=== PATIENT | female | born 1975 | race Caucasian/White ===

== ENCOUNTER → 2016-07-19 | Outpatient (CLI) | payer BC ==
--- NOTE | 2016-07-19 09:26 | REPMRS ---
Patient History The patient states she had a clinical breast exam in 2015. Family history of breast cancer in mother at age 54, breast cancer in paternal aunt at age 30, and breast cancer in maternal grandmother at age 60. Benign ultrasound-guided core biopsy of the right breast, December 27, 2009. Digital Mammo Screening Bilat: July 19, 2016 - Exam #: [id number] Bilateral CC and MLO view(s) were taken. Technologist: Jemima Velez, Technologist Prior study comparison: May 19, 2015, bilateral digital mammo screening bilat performed at [facility]. April 29, 2014, bilateral digital mammo screening bilat performed at [facility]. FINDINGS: The breast tissue is heterogeneously dense. This may lower the sensitivity of mammography. There has been no change in the appearance of the mammogram from the prior studies. There is a moderate amount of residual fibroglandular tissue which is fairly symmetric. There is no interval development of dominant mass, areas of architectural distortion, or clustered microcalcification typical of malignancy. ASSESSMENT: BI-RADS/ACR category 1 mammogram. Negative. Recommendation Routine screening mammogram in 1 year (for women over age 40). This mammogram was interpreted with the aid of an FDA-approved computer-aided dectection system. Electronically Signed By: Francisco J Rainey MD 07/19/16 0926
== END ==
LOC: M RAD 08:03
PROVIDERS: ATTEND Obstetrics & Gynecology
DX: Z12.39 Encounter for other screening for malignant neoplasm of breast (principal); Z80.3 Family history of malignant neoplasm of breast

== ENCOUNTER → 2017-08-22 | Outpatient (CLI) | payer BC | LOC: M RAD 08:11 | DX: Z12.31 Encounter for screening mammogram for malignant neoplasm of breast (principal); Z80.3 Family history of malignant neoplasm of breast | CPT/HCPCS: 77067 ==

== ENCOUNTER → 2017-08-25 | Outpatient (CLI) | payer BC | LOC: M RAD 12:44 | DX: M23.52 Chronic instability of knee, left knee (principal); M23.92 Unspecified internal derangement of left knee | CPT/HCPCS: 73721 ==

== ENCOUNTER 2017-10-15 08:31 | Outpatient (RCR) | payer SELFPAY, BC | END 2017-11-01 | LOC: M PT 08:31 | DX: Z47.89 Encounter for other orthopedic aftercare (principal); Z98.890 Other specified postprocedural states; M25.562 Pain in left knee | CPT/HCPCS: 97110 ==

== ENCOUNTER → 2017-11-01 | Outpatient (REF) | payer BC ==
[2017-11-01 12:38] LABS: HEMATOCRIT 38.8 % (36.0-47.0); HEMOGLOBIN 13.2 g/dl (12.0-15.5); MEAN CORPUSCULAR HEMOGLOBIN 32.6 pg (27.0-33.0); MEAN CORPUSCULAR VOLUME 95.8 fl (80.0-96.0); PLATELET COUNT, AUTOMATED 392 10^3/uL (150-450); RED BLOOD COUNT 4.05 10^6/uL (4.00-5.40); RED CELL DISTRIBUTION WIDTH 12.2 % (11.5-14.5); WHITE BLOOD COUNT 5.2 10^3/uL (4.0-10.0)
[2017-11-01 13:06] LABS: ALBUMIN 3.9 GM/DL (3.2-5.2); ALKALINE PHOSPHATASE 71 U/L (45-117); ALT/SGPT 25 U/L (12-78); ANION GAP 6 MEQ/L (8-16); AST/SGOT 19 U/L (7-37); BILIRUBIN,TOTAL 0.6 MG/DL (0.2-1.0); BLOOD UREA NITROGEN 16 MG/DL (7-18); CALCIUM LEVEL 8.6 MG/DL (8.5-10.1); CARBON DIOXIDE LEVEL 27 MEQ/L (21-32); CHLORIDE LEVEL 107 MEQ/L (98-107); CHOLESTEROL LEVEL 157 MG/DL (<200); CHOLESTEROL RISK RATIO 2.803 (<5); CREATININE FOR GFR 0.58 MG/DL (0.55-1.30); FERRITIN 16 NG/ML (8-252); GLOMERULAR FILTRATION RATE > 60.0 (>60); GLUCOSE, FASTING 84 MG/DL (70-100); HDL CHOLESTEROL 56 MG/DL (>40); IRON (FE) 101 UG/DL (50-170); LDL CHOLESTEROL 82.8 MG/DL (<100); NON-HDL-C 101 MG/DL; PERCENT SATURATION 24.3 % (13.2-45.0); SODIUM LEVEL 140 MEQ/L (136-145); TOTAL IRON BINDING CAPACITY 416 UG/DL (250-450); TOTAL PROTEIN 6.9 GM/DL (6.4-8.2); TRIGLYCERIDES LEVEL 91 MG/DL (<150)
[2017-11-01 14:57] LABS: TOTAL 25(OH) VITAMIN D 20.7 NG/ML (30.0-100.0)
[2017-11-01 14:58] LABS: VITAMIN B12 LEVEL 202 PG/ML (247-911)
== END ==
LOC: M SFHCCLAY 08:41
DX: E66.01 Morbid (severe) obesity due to excess calories (principal)
CPT/HCPCS: 83550

== ENCOUNTER 2017-11-06 10:01 | Outpatient (RCR) | payer SELFPAY | END 2017-12-01 | LOC: M PT 10:01 | DX: Z51.89 Encounter for other specified aftercare (principal); S83.512D Sprain of anterior cruciate ligament of left knee, subsequent encounter; X58.XXXD Exposure to other specified factors, subsequent encounter; Y92.9 Unspecified place or not applicable; Y93.9 Activity, unspecified; Y99.9 Unspecified external cause status | CPT/HCPCS: 97110 ==

== ENCOUNTER → 2018-02-20 | Outpatient (REF) | payer BC ==
[2018-02-20 13:23] LABS: BASO % 0.6 % (0.0-1.0); EOS # 0.2 10^3/uL (0.0-0.50); EOS % 3.1 % (0.0-3.0); HEMATOCRIT 38.2 % (36.0-47.0); IMMATURE GRANULOCYTE % 0.3 % (0-3.0); LYMPH # 2.3 10^3/uL (1.5-4.5); MEAN CORPUSCULAR HEMOGLOBIN 31.6 pg (27.0-33.0); MEAN CORPUSCULAR VOLUME 92.7 fl (80.0-96.0); MONO # 0.5 10^3/uL (0.0-0.8); MONO % 7.9 % (0.0-5.0); NEUTROPHILS # 3.2 10^3/uL (1.8-7.7); NEUTROPHILS % 51.1 % (36.0-66.0); PLATELET COUNT, AUTOMATED 407 10^3/uL (150-450); RED BLOOD COUNT 4.12 10^6/uL (4.00-5.40); RED CELL DISTRIBUTION WIDTH 12.5 % (11.5-14.5); WHITE BLOOD COUNT 6.2 10^3/uL (4.0-10.0)
[2018-02-20 13:59] LABS: ERYTHROCYTE SEDIMENTATION RATE 13 mm/hr (0-20)
[2018-02-20 14:58] LABS: ALBUMIN 3.8 GM/DL (3.2-5.2); ALBUMIN/GLOBULIN RATIO 1.12 (1.00-1.93); ALKALINE PHOSPHATASE 59 U/L (45-117); ALT/SGPT 16 U/L (12-78); ANION GAP 9 MEQ/L (8-16); AST/SGOT 15 U/L (7-37); BILIRUBIN,TOTAL 0.5 MG/DL (0.2-1.0); BLOOD UREA NITROGEN 14 MG/DL (7-18); CALCIUM LEVEL 8.8 MG/DL (8.5-10.1); CARBON DIOXIDE LEVEL 25 MEQ/L (21-32); CHLORIDE LEVEL 107 MEQ/L (98-107); CREATININE FOR GFR 0.61 MG/DL (0.55-1.30); GLOMERULAR FILTRATION RATE > 60.0 (>58); GLUCOSE, FASTING 75 MG/DL (70-100); POTASSIUM SERUM 4.4 MEQ/L (3.5-5.1); RHEUMATOID FACTOR QUANT < 10.0 IU/ML (<15.0); SODIUM LEVEL 141 MEQ/L (136-145); TOTAL 25(OH) VITAMIN D 33.5 NG/ML (30.0-100.0); TOTAL PROTEIN 7.2 GM/DL (6.4-8.2)
[2018-02-21 15:01] LABS: ANTINUCLEAR ANTIBODIES DIRECT Negative (Negative)
== END ==
LOC: M LABNEURO 08:44
DX: R51 Headache (principal)
CPT/HCPCS: 84443

== ENCOUNTER 2018-03-21 06:08 | Day surgery (SDC) | payer BC ==
[2018-03-21 06:53] LABS: HEMATOCRIT 40.2 % (36.0-47.0); HEMOGLOBIN 13.7 g/dl (12.0-15.5); MEAN CORPUSCULAR HEMOGLOBIN 31.9 pg (27.0-33.0); MEAN CORPUSCULAR HGB CONC 34.1 g/dl (32.0-36.5); MEAN CORPUSCULAR VOLUME 93.5 fl (80.0-96.0); PLATELET COUNT, AUTOMATED 404 10^3/uL (150-450); RED CELL DISTRIBUTION WIDTH 12.7 % (11.5-14.5); WHITE BLOOD COUNT 6.6 10^3/uL (4.0-10.0)
[2018-03-21] MEDS ORDERED: fentaNYL 250 MCG/5 ML INJECTION (J3010) As Ordered (08:01)
[2018-03-21] MEDS ORDERED: PROPOFOL 200 MG/20 ML VIAL As Ordered (08:01)
[2018-03-21] MEDS ORDERED: NEOSTIGMINE 10 MG/10 ML VIAL (J2710) As Ordered (08:01)
[2018-03-21] MEDS ORDERED: GLYCOPYRROLATE INJ 0.2 MG/ML 2 ML VIAL As Ordered (08:01)
[2018-03-21] MEDS ORDERED: METOCLOPRAMIDE INJ 10MG/2ML VIAL (J2765) As Ordered (08:01)
[2018-03-21] MEDS ORDERED: MIDAZOLAM INJ 2 MG/2 ML VIAL (J2250) As Ordered (08:01)
[2018-03-21] MEDS ORDERED: KETOROLAC 60 MG/2 ML VIAL (J1885) As Ordered (08:01)
[2018-03-21] MEDS ORDERED: ROCURONIUM BROMIDE 50 MG/5 ML VIAL As Ordered ×3 (08:01→09:14)
[2018-03-21] MEDS ORDERED: dexameTHASONE 4 MG/ML 1ML VIAL (J1100) As Ordered (08:01)
[2018-03-21] MEDS ORDERED: ONDANSETRON 4MG/2ML VIAL (J2405) As Ordered (08:01)
[2018-03-21] MEDS ORDERED: LIDOCAINE 2% INJ 100 MG/5 ML SDV (FOR ANES.) As Ordered (08:01)
[2018-03-21] MEDS ORDERED: HYDROmorphone HCL 2 MG/ML 1ML VIAL (J1170) As Ordered (08:13)
[2018-03-21] MEDS ORDERED: MORPHINE 1MG/ML IN 0.9% NACL 100ML IV BAG As Ordered (10:30)
[2018-03-21] MEDS ORDERED: EPIDURAL/PCA KEYS XX (10:45)
[2018-03-21] MEDS ORDERED: KETOROLAC 30 MG/ML VIAL (J1885) IV (10:45)
[2018-03-21] MEDS ORDERED: NALOXONE INJ 0.4 MG/1 ML VIAL (J2310) IV (10:45)
[2018-03-21] MEDS ORDERED: diphenhydrAMINE INJ 50MG/ML VIAL (J1200) IV (10:45)
[2018-03-21] MEDS ORDERED: fentaNYL 100 MCG/2 ML INJECTION (J3010) IV (10:45)
[2018-03-21] MEDS ORDERED: METOCLOPRAMIDE INJ 10MG/2ML VIAL (J2765) IV (10:45)
[2018-03-21] MEDS ORDERED: MEPERIDINE INJ 25 MG/ML VIAL (J2175) IV (10:45)
[2018-03-21] MEDS ORDERED: HYDROMORPHONE HCL 0.5 MG/ 0.5 ML SYRINGE (J1170 PER 1) IV (10:45)
[2018-03-21] MEDS ORDERED: MORPHINE 1MG/ML IN 0.9% NACL 100ML IV BAG IV (10:45)
[2018-03-21] MEDS ORDERED: NALBUPHINE HCL 10 MG/ML AMP (J2300) IV (10:45)
[2018-03-21] MEDS ORDERED: PERCOCET 5MG/325MG TAB PO (10:45)
[2018-03-21] MEDS: ONDANSETRON 4MG/2ML VIAL (J2405) IV (10:58)
[2018-03-21] MEDS: LR 1,000 ML IV ×3 (11:56→20:09)
[2018-03-21] MEDS: PROMETHAZINE INJ 25 MG/ML VIAL (J2550) IV (13:58)
[2018-03-21 14:15] LABS: HEMATOCRIT 30.9 % (36.0-47.0)
[2018-03-21 14:21] LABS: HEMOGLOBIN 10.4 g/dl (12.0-15.5)
[2018-03-21] MEDS: IBUPROFEN 600 MG TAB PO (19:12)
[2018-03-21] MEDS: ZONISAMIDE 50 MG CAP (ZONEGRAN) PO (20:38)
[2018-03-22] MEDS ORDERED: NORCO, ANEXSIA 5/325MG TABLET (HYDROcodone/ACETAMINOPHEN) PO (06:00)
[2018-03-22 07:06] LABS: HEMATOCRIT 27.3 % (36.0-47.0); HEMOGLOBIN 9.1 g/dl (12.0-15.5); MEAN CORPUSCULAR HEMOGLOBIN 31.3 pg (27.0-33.0); MEAN CORPUSCULAR HGB CONC 33.3 g/dl (32.0-36.5); MEAN CORPUSCULAR VOLUME 93.8 fl (80.0-96.0); PLATELET COUNT, AUTOMATED 297 10^3/uL (150-450); RED BLOOD COUNT 2.91 10^6/uL (4.00-5.40); RED CELL DISTRIBUTION WIDTH 12.6 % (11.5-14.5); WHITE BLOOD COUNT 8.5 10^3/uL (4.0-10.0)
[2018-03-22] MEDS: IBUPROFEN 600 MG TAB PO (07:57)
[2018-03-22] MEDS ORDERED: ENTER DRUG NAME HERE (PATIENT'S OWN MED) PO (09:00)
== END 2018-03-22 09:20 | disposition home or self-care (01) ==
LOC: M SDC 06:08 → M PED 11:23
DX: N93.9 Abnormal uterine and vaginal bleeding, unspecified (principal); R10.2 Pelvic and perineal pain; K21.9 Gastro-esophageal reflux disease without esophagitis; R51 Headache; J30.89 Other allergic rhinitis; E66.9 Obesity, unspecified; Z68.42 Body mass index [BMI] 45.0-49.9, adult; Z79.899 Other long term (current) drug therapy; Z98.51 Tubal ligation status; Z98.84 Bariatric surgery status
CPT/HCPCS: 58571

== ENCOUNTER 2018-05-02 20:58 | Emergency (ER) | payer OTHER, BC ==
[2018-05-02] MEDS: ACETAMINOPHEN 325 MG TAB PO (23:30)
== END 2018-05-03 01:04 | disposition home or self-care (01) ==
LOC: M ED 05-03 01:04
DX: M62.838 Other muscle spasm (principal); V49.59XA Passenger injured in collision with other motor vehicles in traffic accident, initial encounter; Y92.410 Unspecified street and highway as the place of occurrence of the external cause; K21.9 Gastro-esophageal reflux disease without esophagitis; Z98.84 Bariatric surgery status
CPT/HCPCS: 73560

== ENCOUNTER → 2018-06-01 | Outpatient (REF) | payer BC ==
[~2018-06-01] MED LIST: BACT800T5 PO; CAMRTAB PO; FLON1SPR; IBUP-1022 PO; LEVOTAB10 PO; NORC1TAB4 PO; NORCOTAB PO; PANT40TA3 PO; ZOFR4TAB14 PO; ZONI25CA2 PO
== END ==
LOC: M LAB REF 10:13
PROVIDERS: ATTEND Physician Assistant
DX: L02.415 Cutaneous abscess of right lower limb (principal)

== ENCOUNTER → 2018-07-01 | Outpatient (REF) | payer BC | LOC: M SFHCCLAY 07:51 | PROVIDERS: ATTEND Nurse Practitioner Family | DX: L02.91 Cutaneous abscess, unspecified (principal) ==

== ENCOUNTER → 2018-10-15 | Outpatient (REF) | payer BC ==
[~2018-10-15] MED LIST changes: +HYDR-3715 PO; -NORC1TAB4 PO; +NORC1TAB7 PO; -NORCOTAB PO
[2018-10-15 13:35] LABS: BASO % 0.8 % (0.0-1.0); EOS # 0.1 10^3/uL (0.0-0.50); EOS % 2.2 % (0.0-3.0); HEMATOCRIT 37.8 % (36.0-47.0); HEMOGLOBIN 12.1 g/dl (12.0-15.5); LYMPH # 1.6 10^3/uL (1.5-4.5); LYMPH % 32.5 % (24.0-44.0); MEAN CORPUSCULAR HEMOGLOBIN 27.4 pg (27.0-33.0); MEAN CORPUSCULAR VOLUME 85.7 fl (80.0-96.0); MONO # 0.5 10^3/uL (0.0-0.8); MONO % 8.9 % (0.0-5.0); NEUTROPHILS # 2.8 10^3/uL (1.8-7.7); NEUTROPHILS % 55.4 % (36.0-66.0); PLATELET COUNT, AUTOMATED 422 10^3/uL (150-450); RED BLOOD COUNT 4.41 10^6/uL (4.00-5.40); WHITE BLOOD COUNT 5.1 10^3/uL (4.0-10.0)
[2018-10-15 14:06] LABS: ALBUMIN 4.1 GM/DL (3.2-5.2); ALT/SGPT 21 U/L (12-78); BILIRUBIN,TOTAL 0.4 MG/DL (0.2-1.0); BLOOD UREA NITROGEN 19 MG/DL (7-18); CARBON DIOXIDE LEVEL 27 MEQ/L (21-32); CHLORIDE LEVEL 107 MEQ/L (98-107); CREATININE FOR GFR 0.63 MG/DL (0.55-1.30); GLOMERULAR FILTRATION RATE > 60.0 (>58); GLUCOSE, FASTING 82 MG/DL (70-100); SODIUM LEVEL 140 MEQ/L (136-145); TOTAL PROTEIN 7.5 GM/DL (6.4-8.2)
== END ==
LOC: M LABNEURO 10:57
PROVIDERS: ATTEND Psychiatry & Neurology Neurology
DX: R51 Headache (principal)

== ENCOUNTER → 2019-10-31 | Outpatient (REF) | payer BC ==
[~2019-10-31] MED LIST changes: +ZONI25CA13 PO; -ZONI25CA2 PO
[2019-10-31 12:28] LABS: BASO % 0.4 % (0.0-1.0); EOS # 0.1 10^3/uL (0.0-0.5); HEMATOCRIT 40.6 % (36.0-47.0); HEMOGLOBIN 13.6 g/dl (12.0-15.5); LYMPH % 42.2 % (24.0-44.0); MEAN CORPUSCULAR HEMOGLOBIN 32.2 pg (27.0-33.0); MEAN CORPUSCULAR HGB CONC 33.5 g/dl (32.0-36.5); MONO # 0.5 10^3/uL (0.0-0.8); MONO % 9.7 % (0.0-5.0); NEUTROPHILS # 2.1 10^3/uL (1.5-8.5); NEUTROPHILS % 44.5 % (36.0-66.0); PLATELET COUNT, AUTOMATED 308 10^3/uL (150-450); RED BLOOD COUNT 4.23 10^6/uL (4.00-5.40); WHITE BLOOD COUNT 4.7 10^3/uL (4.0-10.0)
[2019-10-31 13:33] LABS: ALBUMIN 4.1 GM/DL (3.2-5.2); ALT/SGPT 22 U/L (12-78); BILIRUBIN,TOTAL 0.6 MG/DL (0.2-1.0); BLOOD UREA NITROGEN 16 MG/DL (7-18); CALCIUM LEVEL 9.2 MG/DL (8.5-10.1); CARBON DIOXIDE LEVEL 26 MEQ/L (21-32); CHLORIDE LEVEL 109 MEQ/L (98-107); CREATININE FOR GFR 0.65 MG/DL (0.55-1.30); GLOMERULAR FILTRATION RATE > 60.0 (>58); GLUCOSE, FASTING 69 MG/DL (70-100); POTASSIUM SERUM 3.7 MEQ/L (3.5-5.1); SODIUM LEVEL 140 MEQ/L (136-145)
== END ==
LOC: M LABDRAWC 11:26
PROVIDERS: ATTEND Psychiatry & Neurology Neurology
DX: Z51.81 Encounter for therapeutic drug level monitoring (principal); Z79.899 Other long term (current) drug therapy; R51 Headache

== ENCOUNTER → 2019-11-12 | Outpatient (CLI) | payer BC, SELFPAY | LOC: M LABSMTC 12:51 | PROVIDERS: ATTEND Pediatrics | DX: Z03.818 Encounter for observation for suspected exposure to other biological agents ruled out (principal); Z11.59 Encounter for screening for other viral diseases ==

== ENCOUNTER → 2019-12-22 | Outpatient (CLI) | payer SELFPAY ==
[~2019-12-22] MED LIST changes: +PANT40TA29 PO; -PANT40TA3 PO
== END ==
LOC: M LABSMTC 12:38
PROVIDERS: ATTEND Pediatrics
DX: Z20.828 Contact with and (suspected) exposure to other viral communicable diseases (principal); Z11.59 Encounter for screening for other viral diseases

== ENCOUNTER → 2020-08-13 | Outpatient (REF) | payer OTHER | LOC: M SFHCCLAY 11:40 | PROVIDERS: ATTEND Physician Assistant | DX: R09.81 Nasal congestion (principal) ==

== ENCOUNTER → 2021-03-03 | Outpatient (REF) | payer OTHER ==
[2021-03-03 11:25] LABS: BASO % 0.6 % (0.0-1.0); EOS # 0.1 10^3/uL (0.0-0.5); EOS % 2.3 % (0.0-3.0); HEMATOCRIT 41.7 % (36.0-47.0); LYMPH # 1.7 10^3/uL (1.5-5.0); LYMPH % 35.7 % (24.0-44.0); MEAN CORPUSCULAR HEMOGLOBIN 32.7 pg (27.0-33.0); MEAN CORPUSCULAR HGB CONC 33.6 g/dl (32.0-36.5); MEAN CORPUSCULAR VOLUME 97.4 fl (80.0-96.0); MONO # 0.2 10^3/uL (0.0-0.8); MONO % 5.1 % (2.0-8.0); NEUTROPHILS # 2.6 10^3/uL (1.5-8.5); NEUTROPHILS % 55.7 % (36.0-66.0); PLATELET COUNT, AUTOMATED 343 10^3/uL (150-450); RED BLOOD COUNT 4.28 10^6/uL (4.00-5.40); WHITE BLOOD COUNT 4.7 10^3/uL (4.0-10.0)
[2021-03-03 11:46] LABS: HEMOGLOBIN A1c 5.1 %
[2021-03-03 11:54] LABS: BLOOD UREA NITROGEN 14 MG/DL (7-18); CREATININE FOR GFR 0.69 MG/DL (0.55-1.30); GLUCOSE, FASTING 88 MG/DL (70-100)
[2021-03-03 11:55] LABS: ALT/SGPT 21 U/L (12-78); BILIRUBIN,TOTAL 0.6 MG/DL (0.2-1.0); CALCIUM LEVEL 9.4 MG/DL (8.5-10.1); CARBON DIOXIDE LEVEL 30 MEQ/L (21-32); CHLORIDE LEVEL 109 MEQ/L (98-107); CHOLESTEROL LEVEL 140 MG/DL (<200); FOLATE 21.1 NG/ML (>5.4); FREE T4 1.01 NG/DL (0.76-1.46); GLOMERULAR FILTRATION RATE > 60.0 (>58); HDL CHOLESTEROL 56 MG/DL (>40); IRON (FE) 125 UG/DL (50-170); LDL CHOLESTEROL 74 MG/DL (<100); MAGNESIUM LEVEL 2.4 MG/DL (1.8-2.4); NON-HDL-C 84 MG/DL; PERCENT SATURATION 37.1 % (13.2-45.0); POTASSIUM SERUM 4.1 MEQ/L (3.5-5.1); SODIUM LEVEL 144 MEQ/L (136-145); TOTAL 25(OH) VITAMIN D 47.8 NG/ML (30.0-100.0); TOTAL IRON BINDING CAPACITY 337 UG/DL (250-450); TOTAL PROTEIN 7.2 GM/DL (6.4-8.2); TRIGLYCERIDES LEVEL 51 MG/DL (<150); VITAMIN B12 LEVEL 488 PG/ML (247-911)
== END ==
LOC: M SFHCCLAY 08:26
PROVIDERS: ATTEND Nurse Practitioner Family
DX: E66.01 Morbid (severe) obesity due to excess calories (principal); Z98.84 Bariatric surgery status

== ENCOUNTER → 2021-03-07 | Outpatient (CLI) | payer OTHER ==
--- NOTE | 2021-03-07 08:50 | REP ---
INDICATION: M89.8X1, PAIN OF RIGHT CLAVICLE COMPARISON: None. TECHNIQUE: Two views of the right clavicle FINDINGS: Cortical irregularity and subtle spurring at the acromioclavicular joint possible small periarticular calcification suggests early arthritic change. Limited evaluation of the glenohumeral joint appears intact and age-appropriate. Sternoclavicular joint appears normal. Clavicle appears intact and without evidence for acute fracture or dislocation. 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 <Electronically signed by Mo Hurd > 03/07/21 0895
== END ==
LOC: M CLY 08:23
PROVIDERS: ATTEND Nurse Practitioner Family
DX: M89.8X1 Other specified disorders of bone, shoulder (principal)

== ENCOUNTER → 2021-12-12 | Outpatient (REF) | payer OTHER | LOC: M SFHCCLAY 10:28 | PROVIDERS: ATTEND Nurse Practitioner Family | DX: R19.7 Diarrhea, unspecified (principal) ==

== ENCOUNTER → 2021-12-14 | Outpatient (REF) | payer OTHER | LOC: M SFHCCLAY 11:27 | PROVIDERS: ATTEND Nurse Practitioner Family | DX: R19.7 Diarrhea, unspecified (principal) ==

== ENCOUNTER → 2022-01-03 | Outpatient (REF) | payer OTHER ==
[2022-01-03 17:43] LABS: BASO % 0.3 % (0.0-1.0); EOS # 0.1 10^3/uL (0.0-0.5); EOS % 2.3 % (0.0-3.0); HEMOGLOBIN 13.5 g/dl (12.0-15.5); LYMPH # 2.4 10^3/uL (1.5-5.0); LYMPH % 38.8 % (24.0-44.0); MEAN CORPUSCULAR HEMOGLOBIN 32.2 pg (27.0-33.0); MEAN CORPUSCULAR HGB CONC 33.8 g/dl (32.0-36.5); MEAN CORPUSCULAR VOLUME 95.5 fl (80.0-96.0); MONO # 0.4 10^3/uL (0.0-0.8); MONO % 6.9 % (2.0-8.0); NEUTROPHILS # 3.1 10^3/uL (1.5-8.5); NEUTROPHILS % 51.5 % (36.0-66.0); PLATELET COUNT, AUTOMATED 357 10^3/uL (150-450); RED BLOOD COUNT 4.19 10^6/uL (4.00-5.40); WHITE BLOOD COUNT 6.1 10^3/uL (4.0-10.0)
[2022-01-03 18:14] LABS: ALT/SGPT 20 U/L (12-78); BILIRUBIN,TOTAL 0.5 MG/DL (0.2-1.0); BLOOD UREA NITROGEN 20 MG/DL (7-18); CARBON DIOXIDE LEVEL 28 MEQ/L (21-32); CHLORIDE LEVEL 109 MEQ/L (98-107); GLOMERULAR FILTRATION RATE > 60.0 (>58); GLUCOSE, FASTING 83 MG/DL (70-100); POTASSIUM SERUM 3.9 MEQ/L (3.5-5.1); RHEUMATOID FACTOR QUANT < 10.0 IU/ML (<15.0); SODIUM LEVEL 142 MEQ/L (136-145); TOTAL PROTEIN 7.1 GM/DL (6.4-8.2)
[2022-01-03 18:36] LABS: TOTAL 25(OH) VITAMIN D 39.7 NG/ML (30.0-100.0)
[2022-01-03 18:45] LABS: ERYTHROCYTE SEDIMENTATION RATE 10 mm/hr (0-20)
[2022-01-05 14:08] LABS: ANTINUCLEAR ANTIBODIES DIRECT Negative (Negative)
== END ==
LOC: M LABDRAWC 16:57
PROVIDERS: ATTEND Psychiatry & Neurology Neurology
DX: R51.9 Headache, unspecified (principal)

== ENCOUNTER → 2022-07-03 | Outpatient (REF) | payer OTHER | LOC: M PLALAB 15:37 | PROVIDERS: ATTEND Nurse Practitioner Family | DX: Z12.4 Encounter for screening for malignant neoplasm of cervix (principal) | CPT/HCPCS: 87624; G0123 ==

== ENCOUNTER → 2022-11-07 | Outpatient (REF) | payer OTHER ==
[2022-11-07 13:08] LABS: BASO % 0.5 % (0.0-1.0); EOS # 0.1 10^3/uL (0.0-0.5); EOS % 2.5 % (0.0-3.0); HEMATOCRIT 40.2 % (36.0-47.0); HEMOGLOBIN 13.4 g/dl (12.0-15.5); LYMPH # 1.8 10^3/uL (1.5-5.0); LYMPH % 32.3 % (24.0-44.0); MEAN CORPUSCULAR HGB CONC 33.3 g/dl (32.0-36.5); MEAN CORPUSCULAR VOLUME 95.9 fl (80.0-96.0); MONO # 0.5 10^3/uL (0.0-0.8); MONO % 8.6 % (2.0-8.0); NEUTROPHILS # 3.1 10^3/uL (1.5-8.5); NEUTROPHILS % 55.9 % (36.0-66.0); PLATELET COUNT, AUTOMATED 322 10^3/uL (150-450); RED BLOOD COUNT 4.19 10^6/uL (4.00-5.40); WHITE BLOOD COUNT 5.6 10^3/uL (4.0-10.0)
[2022-11-07 13:32] LABS: HEMOGLOBIN A1c 5.1 % (4.0-6.0)
[2022-11-07 13:46] LABS: FERRITIN 38.9 NG/ML (7.3-270.7); FOLATE 19.87 NG/ML (>5.4); FREE T4 0.89 NG/DL (0.89-1.76); THYROID STIMULATING HORMONE 2.189 uIU/ML (0.55-4.78)
[2022-11-07 13:54] LABS: ALBUMIN 4.1 G/DL (3.2-5.2); ALKALINE PHOSPHATASE 70 U/L (46-116); ALT/SGPT 13 U/L (7.0-40); AST/SGOT 12 U/L (<34); BILIRUBIN,TOTAL 0.6 MG/DL (0.3-1.2); BLOOD UREA NITROGEN 19 MG/DL (9-23); CALCIUM LEVEL 8.8 MG/DL (8.5-10.1); CARBON DIOXIDE LEVEL 29 MMOL/L (20-31); CHLORIDE LEVEL 107 MMOL/L (98-107); CHOLESTEROL LEVEL 140 MG/DL (<200); CHOLESTEROL RISK RATIO 2.51 (<5); CREATININE FOR GFR 0.56 MG/DL (0.55-1.30); GLOMERULAR FILTRATION RATE > 60.0 (>58); GLUCOSE, FASTING 87 MG/DL (60-100); HDL CHOLESTEROL 55.6 MG/DL (>40); IRON (FE) 93 UG/DL (50-170); LDL CHOLESTEROL 71.6 MG/DL (<100); NON-HDL-C 84.4 MG/DL; POTASSIUM SERUM 4.6 MMOL/L (3.5-5.1); SODIUM LEVEL 141 MMOL/L (136-145); TOTAL PROTEIN 6.5 G/DL (5.7-8.2); TRIGLYCERIDES LEVEL 64 MG/DL (<150)
== END ==
LOC: M SFHCCLAY 08:22
PROVIDERS: ATTEND Nurse Practitioner Family
DX: E66.01 Morbid (severe) obesity due to excess calories (principal); Z98.84 Bariatric surgery status; Z00.00 Encounter for general adult medical examination without abnormal findings

== ENCOUNTER → 2023-01-01 | Outpatient (CLI) | payer OTHER ==
[~2023-01-01] MED LIST changes: +ISOVUE-370 76% 100ML VIAL As Ordered ONE
== END ==
LOC: M RAD 15:36
PROVIDERS: ATTEND Physician Assistant Medical
DX: R22.1 Localized swelling, mass and lump, neck (principal)
CPT/HCPCS: 70491; Q9967

== ENCOUNTER → 2023-01-22 | Outpatient (CLI) | payer OTHER ==
[~2023-01-22] MED LIST changes: -ISOVUE-370 76% 100ML VIAL As Ordered ONE
== END ==
LOC: M PLAIMG 13:38
PROVIDERS: ATTEND Podiatrist Foot & Ankle Surgery
DX: D21.21 Benign neoplasm of connective and other soft tissue of right lower limb, including hip (principal); D21.22 Benign neoplasm of connective and other soft tissue of left lower limb, including hip

== ENCOUNTER → 2023-02-16 | Outpatient (CLI) | payer OTHER ==
[~2023-02-16] MED LIST changes: +PROHANCE 279.3MG/ML 15ML VIAL As Ordered ONE; +PROHANCE 279.3MG/ML 5ML VIAL As Ordered ONE
== END ==
LOC: M RAD 10:33
PROVIDERS: ATTEND Nurse Practitioner Family
DX: Z12.39 Encounter for other screening for malignant neoplasm of breast (principal); Z80.3 Family history of malignant neoplasm of breast
CPT/HCPCS: 77049; A9576

== ENCOUNTER 2023-03-14 10:55 | Day surgery (SDC) | payer OTHER ==
[~2023-03-14] VITALS: Ht 157.5 cm; Wt 118.4 kg
[~2023-03-14 10:55] MED LIST changes: +DULO1CAP5; +DULO1CAP5 PO; +EMGA120I SC; +NS 1,000 ML IV ONE; -PROHANCE 279.3MG/ML 15ML VIAL As Ordered ONE; -PROHANCE 279.3MG/ML 5ML VIAL As Ordered ONE; +VENL37.598 PO
[2023-03-14] MEDS ORDERED: propofoL 200 MG/20 ML VIAL As Ordered ONE (13:09)
[2023-03-14] MEDS ORDERED: LIDOCAINE 2% 100MG/5ML SDV (FOR ANES.) As Ordered ONE (13:09)
[2023-03-14] MEDS ORDERED: ONDANSETRON 4MG 2ML VIAL As Ordered ONE (13:15)
[2023-03-14 13:34] VITALS: TEMP 98.5
[2023-03-14 13:50] VITALS: BP 129/74; O2SAT 98
== END 2023-03-14 14:01 | disposition home or self-care (01) ==
LOC: M OPP 10:55
PROVIDERS: ATTEND Surgery
DX: Z12.11 Encounter for screening for malignant neoplasm of colon (principal); G47.30 Sleep apnea, unspecified; Z79.811 Long term (current) use of aromatase inhibitors; Z79.899 Other long term (current) drug therapy
CPT/HCPCS: 45378; J2405

== ENCOUNTER → 2023-03-20 | Outpatient (CLI) | payer OTHER ==
[~2023-03-20] MED LIST changes: -NS 1,000 ML IV ONE
[2023-03-20 19:33] LABS: BLOOD UREA NITROGEN 15 MG/DL (9-23); CALCIUM LEVEL 9.2 MG/DL (8.5-10.1); CARBON DIOXIDE LEVEL 31 MMOL/L (20-31); CHLORIDE LEVEL 103 MMOL/L (98-107); CREATININE FOR GFR 0.56 MG/DL (0.55-1.30); GLOMERULAR FILTRATION RATE > 60.0 (>58); GLUCOSE, FASTING 99 MG/DL (60-100); POTASSIUM SERUM 3.6 MMOL/L (3.5-5.1); SODIUM LEVEL 141 MMOL/L (136-145)
== END ==
LOC: M LAB 18:31
PROVIDERS: ATTEND Anesthesiology
DX: Z01.818 Encounter for other preprocedural examination (principal)

== ENCOUNTER → 2023-09-17 | Outpatient (REF) | payer OTHER ==
[~2023-09-17] MED LIST changes: +ALLE180T33 PO; +CALC500T38 PO; +GALZ25CA PO; +HYDR-3713 PO; +PHEN-239 PO; +RA M500C PO; +RA N1TAB PO; +TOPI-21 PO; +VENL75CA47 PO; +VITMTA PO
[2023-09-17 17:46] LABS: RHEUMATOID FACTOR QUANT 5.6 IU/ML (<14); TOTAL IRON BINDING CAPACITY 332 UG/DL (250-425)
[2023-09-17 17:47] LABS: ALBUMIN 4.2 G/DL (3.2-5.2); ALKALINE PHOSPHATASE 87 U/L (46-116); ALT/SGPT 17 U/L (7.0-40); AST/SGOT 18 U/L (<34); BASO % 0.6 % (0.0-1.0); BILIRUBIN,TOTAL 0.4 MG/DL (0.3-1.2); BLOOD UREA NITROGEN 17 MG/DL (9-23); CALCIUM LEVEL 9.1 MG/DL (8.5-10.1); CARBON DIOXIDE LEVEL 28 MMOL/L (20-31); CHLORIDE LEVEL 108 MMOL/L (98-107); CHOLESTEROL LEVEL 169 MG/DL (<200); CHOLESTEROL RISK RATIO 2.99 (<5); CREATININE FOR GFR 0.66 MG/DL (0.55-1.30); EOS # 0.1 10^3/uL (0.0-0.5); EOS % 1.3 % (0.0-3.0); GLOMERULAR FILTRATION RATE > 60.0 (>58); GLUCOSE, FASTING 131 MG/DL (60-100); HDL CHOLESTEROL 56.5 MG/DL (>40); HEMATOCRIT 41.2 % (36.0-47.0); IRON (FE) 65 UG/DL (50-170); LDL CHOLESTEROL 91.9 MG/DL (<100); LYMPH # 1.9 10^3/uL (1.5-5.0); LYMPH % 35.6 % (24.0-44.0); MAGNESIUM LEVEL 2.2 MG/DL (1.8-2.4); MEAN CORPUSCULAR HEMOGLOBIN 32.6 pg (27.0-33.0); MEAN CORPUSCULAR VOLUME 95.8 fl (80.0-96.0); MONO # 0.4 10^3/uL (0.0-0.8); MONO % 7.4 % (2.0-8.0); NEUTROPHILS % 54.9 % (36.0-66.0); NON-HDL-C 112.5 MG/DL; PERCENT SATURATION 19.6 % (13.2-45.0); PLATELET COUNT, AUTOMATED 377 10^3/uL (150-450); POTASSIUM SERUM 3.9 MMOL/L (3.5-5.1); SODIUM LEVEL 141 MMOL/L (136-145); TOTAL PROTEIN 7.1 G/DL (5.7-8.2); TRIGLYCERIDES LEVEL 103 MG/DL (<150); WHITE BLOOD COUNT 5.4 10^3/uL (4.0-10.0)
[2023-09-17 17:50] LABS: FREE T4 0.89 NG/DL (0.89-1.76); THYROID STIMULATING HORMONE 3.539 uIU/ML (0.55-4.78)
[2023-09-17 17:51] LABS: TOTAL 25(OH) VITAMIN D 35.2 NG/ML (20.0-100.0)
[2023-09-17 17:53] LABS: VITAMIN B12 LEVEL 423 PG/ML (211-911)
[2023-09-17 18:21] LABS: HEMOGLOBIN A1c 4.9 % (4.0-6.0)
== END ==
LOC: M SFHCCLAY 14:00
PROVIDERS: ATTEND Nurse Practitioner Family
DX: R45.86 Emotional lability (principal); G47.33 Obstructive sleep apnea (adult) (pediatric); E66.01 Morbid (severe) obesity due to excess calories; Z68.42 Body mass index [BMI] 45.0-49.9, adult; Z78.0 Asymptomatic menopausal state; Z91.89 Other specified personal risk factors, not elsewhere classified; G43.709 Chronic migraine without aura, not intractable, without status migrainosus; R21 Rash and other nonspecific skin eruption; R10.9 Unspecified abdominal pain

== ENCOUNTER → 2023-09-17 | Outpatient (CLI) | payer OTHER | LOC: M CLY 14:20 | PROVIDERS: ATTEND Nurse Practitioner Family | DX: M54.59 Other low back pain (principal) ==

== ENCOUNTER → 2024-08-11 | Outpatient (CLI) | payer OTHER ==
[2024-08-11 17:31] LABS: BASO % 0.7 % (0.0-1.0); EOS # 0.1 10^3/uL (0.0-0.5); EOS % 0.9 % (0.0-3.0); HEMATOCRIT 41.2 % (36.0-47.0); HEMOGLOBIN 13.7 g/dl (12.0-15.5); LYMPH % 36.2 % (24.0-44.0); MEAN CORPUSCULAR HEMOGLOBIN 31.6 pg (27.0-33.0); MEAN CORPUSCULAR HGB CONC 33.3 g/dl (32.0-36.5); MEAN CORPUSCULAR VOLUME 94.9 fl (80.0-96.0); MONO # 0.4 10^3/uL (0.0-0.8); MONO % 7.5 % (2.0-8.0); NEUTROPHILS % 54.3 % (36.0-66.0); PLATELET COUNT, AUTOMATED 361 10^3/uL (150-450); RED BLOOD COUNT 4.34 10^6/uL (4.00-5.40); WHITE BLOOD COUNT 5.6 10^3/uL (4.0-10.0)
[2024-08-11 17:49] LABS: TOTAL IRON BINDING CAPACITY 316 UG/DL (250-425)
[2024-08-11 17:50] LABS: ALBUMIN 4.5 G/DL (3.2-5.2); ALKALINE PHOSPHATASE 72 U/L (35-104); ALT/SGPT 12 U/L (7.0-40); AST/SGOT 16 U/L (<34); BILIRUBIN,TOTAL 0.7 MG/DL (0.3-1.2); BLOOD UREA NITROGEN 18 MG/DL (9-23); CALCIUM LEVEL 9.5 MG/DL (8.5-10.1); CARBON DIOXIDE LEVEL 24 MMOL/L (20-31); CHLORIDE LEVEL 108 MMOL/L (98-107); CHOLESTEROL LEVEL 142 MG/DL (<200); CHOLESTEROL RISK RATIO 2.79 (<5); GLOMERULAR FILTRATION RATE > 60.0 (>58); GLUCOSE, FASTING 69 MG/DL (60-100); HDL CHOLESTEROL 50.8 MG/DL (>40); LDL CHOLESTEROL 78.6 MG/DL (<100); MAGNESIUM LEVEL 2.2 MG/DL (1.8-2.4); NON-HDL-C 91.2 MG/DL; SODIUM LEVEL 143 MMOL/L (136-145); THYROID STIMULATING HORMONE 1.436 uIU/ML (0.55-4.78); TOTAL PROTEIN 7.2 G/DL (5.7-8.2); TRIGLYCERIDES LEVEL 63 MG/DL (<150)
[2024-08-11 17:51] LABS: IRON (FE) 124 UG/DL (50-170); PERCENT SATURATION 39.2 % (13.2-45.0)
== END ==
LOC: M WUC 12:17
PROVIDERS: ATTEND Nurse Practitioner Family
DX: R45.86 Emotional lability (principal); E66.01 Morbid (severe) obesity due to excess calories; Z68.42 Body mass index [BMI] 45.0-49.9, adult; G47.33 Obstructive sleep apnea (adult) (pediatric); Z78.0 Asymptomatic menopausal state; G43.709 Chronic migraine without aura, not intractable, without status migrainosus; Z91.89 Other specified personal risk factors, not elsewhere classified